=== PATIENT | female | born 1940 | race Caucasian/White ===

== ENCOUNTER 2018-01-27 20:31 | Inpatient (IN) ==
[2018-01-27] MEDS ORDERED: fentaNYL Citrate Inj 100 MCG/2 ML Ampul IV.PUSH ONE (21:27)
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
[2018-01-27 22:36] LABS: Baso % (Auto) 0.2 % (0.0-2.0); Eos # (Auto) 0.1 th/mm3 (0.0-0.4); Eos % (Auto) 1.9 % (0.0-4.0); Hematocrit 36.2 % (35.0-46.0); Lymph # (Auto) 0.9 th/mm3 (1.0-4.8); Lymph % (Auto) 13.7 % (9.0-44.0); Mean Corpuscular HGB Conc 33.1 % (32.0-36.0); Mean Corpuscular Volume 90.5 fL (80.0-100.0); Mean Platelet Volume 8.8 fL (7.0-11.0); Mono # (Auto) 0.6 th/mm3 (0.0-0.9); Mono % (Auto) 8.8 % (0.0-8.0); Neut # (Auto) 5.2 th/mm3 (1.8-7.7); Neut % (Auto) 75.4 % (16.0-70.0); Platelet Count 160 th/mm3 (150-450); Red Cell Distribution Width 13.8 % (11.6-17.2); White Blood Count 6.9 th/mm3 (4.0-11.0)
[2018-01-27 22:53] LABS: Activated Partial Thrombo Time 21.4 sec (23.4-31.7); Prothrombin Time 10.5 sec (9.8-11.6)
[2018-01-27 22:58] LABS: Calcium 8.5 mg/dL (8.5-10.1); Carbon Dioxide 28.8 meq/L (21.0-32.0); Potassium 4.1 meq/L (3.5-5.1)
[2018-01-27] MEDS ORDERED: Sod Chloride 0.9% Inj 1,000 ML IV.CONT SCH (23:00)
[2018-01-27] MEDS ORDERED: Pantoprazole Inj 40 MG Vial IV.PUSH SCH (23:00)
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
[2018-01-28] MEDS: Morphine Sulfate Inj 2 MG/ML Vial IV.PUSH PRN ×2 (01:43→17:29)
[2018-01-28] MEDS ORDERED: Sodium Chlor 0.9% Inj 500 ML IV.CONT ONE (04:00)
[2018-01-28] MEDS ORDERED: Chlorhexidine Gluconate 2% 1 Pack (2 Cloths) TOPICAL ONE (04:00)
[2018-01-28 06:15] LABS: Baso % (Auto) 0.2 % (0.0-2.0); Eos # (Auto) 0.4 th/mm3 (0.0-0.4); Eos % (Auto) 6.2 % (0.0-4.0); Hematocrit 34.5 % (35.0-46.0); Hemoglobin 11.9 gm/dL (11.6-15.3); Lymph # (Auto) 1.2 th/mm3 (1.0-4.8); Lymph % (Auto) 17.9 % (9.0-44.0); Mean Corpuscular HGB Conc 34.4 % (32.0-36.0); Mean Corpuscular Hemoglobin 30.9 pg (27.0-34.0); Mean Corpuscular Volume 89.8 fL (80.0-100.0); Mean Platelet Volume 9.6 fL (7.0-11.0); Mono # (Auto) 0.6 th/mm3 (0.0-0.9); Mono % (Auto) 9.4 % (0.0-8.0); Neut # (Auto) 4.3 th/mm3 (1.8-7.7); Neut % (Auto) 66.3 % (16.0-70.0); Platelet Count 158 th/mm3 (150-450); Red Blood Count 3.84 mil/mm3 (4.00-5.30); Red Cell Distribution Width 13.8 % (11.6-17.2); White Blood Count 6.5 th/mm3 (4.0-11.0)
[2018-01-28 06:45] LABS: Albumin 3.2 g/dL (3.4-5.0); Anion Gap 9 meq/L (5-15); Aspartate Aminotransferase 44 U/L (15-37); Blood Urea Nitrogen 19 mg/dL (7-18); Calcium 8.3 mg/dL (8.5-10.1); Chloride 107 meq/L (98-107); Glomerular Filtration Rate 70 mL/min (>89); Glucose,Random 102 mg/dL (74-106); Potassium 3.9 meq/L (3.5-5.1); Sodium 141 meq/L (136-145)
[2018-01-28 06:47] LABS: Alanine Aminotransferase 35 U/L (10-53)
[2018-01-28 06:49] LABS: Alkaline Phosphatase 67 U/L (45-117); Total Protein 6.2 g/dL (6.4-8.2)
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
--- NOTE | 2018-01-28 08:11 | P.PNOP ---
Subjective Interval history: s/p right ankle fx and right wrist fx Physical Exam Vital signs: Vital Signs 01/27/18 20:58 01/28/18 00:06 01/28/18 00:44 Temperature Pulse Rate 73 70 Respiratory Rate 16 14 14 Blood Pressure 117/57 L Pulse Oximetry 94 L 96 01/28/18 00:48 01/28/18 01:24 01/28/18 03:59 Temperature 98.7 F Pulse Rate 75 Respiratory Rate 14 18 Blood Pressure 111/57 L 124/58 L Pulse Oximetry 98 95 Intake & Output 01/27/18 01/28/18 01/28/18 18:59 06:59 18:59 Intake Total 480 / 480 Output Total 400 / 400 Balance 80 / 80 Weight 88.6 kg Intake: Oral 480 / 480 Output: Urine 400 / 400 Other: # Voids 2 Date of Last Bowel Movement 01/27/18 # Bowel Movements 0 Weight On Admission 154.94 kg Narrative: RLE: +splint RUE: +splint Results - Labs CBC & Chem 7: 01/28/18 05:52 01/28/18 05:52 Laboratory Results - last 24 hr 01/27/18 01/27/18 01/27/18 22:15 22:15 22:15 WBC 6.9 RBC 4.00 Hgb 12.0 Hct 36.2 MCV 90.5 MCH 30.0 MCHC 33.1 RDW 13.8 Plt Count 160 MPV 8.8 Neut % (Auto) 75.4 H Lymph % (Auto) 13.7 [place] % (Auto) 8.8 H Eos % (Auto) 1.9 Baso % (Auto) 0.2 Neut # (Auto) 5.2 Lymph # (Auto) 0.9 L [place] # (Auto) 0.6 Eos # (Auto) 0.1 Baso # (Auto) 0.0 WBC Differential . Differential Comment Auto diff final PT 10.5 INR 1.0 APTT 21.4 L Sodium 140 Potassium 4.1 Chloride 105 Carbon Dioxide 28.8 Anion Gap 6 BUN 20 H Creatinine 0.81 Estimated GFR 69 L Random Glucose 116 H Calcium 8.5 Total Bilirubin AST ALT Alkaline Phosphatase Total Protein Albumin Blood Type Blood Type Recheck Antibody Screen 01/27/18 01/28/18 01/28/18 22:15 05:52 05:52 WBC 6.5 RBC 3.84 L Hgb 11.9 Hct 34.5 L MCV 89.8 MCH 30.9 MCHC 34.4 RDW 13.8 Plt Count 158 MPV 9.6 Neut % (Auto) 66.3 Lymph % (Auto) 17.9 [place] % (Auto) 9.4 H Eos % (Auto) 6.2 H Baso % (Auto) 0.2 Neut # (Auto) 4.3 Lymph # (Auto) 1.2 [place] # (Auto) 0.6 Eos # (Auto) 0.4 Baso # (Auto) 0.0 WBC Differential . Differential Comment Auto diff final PT INR APTT Sodium 141 Potassium 3.9 Chloride 107 Carbon Dioxide 25.0 Anion Gap 9 BUN 19 H Creatinine 0.80 Estimated GFR 70 L Random Glucose 102 Calcium 8.3 L Total Bilirubin 0.7 AST 44 H ALT 35 Alkaline Phosphatase 67 Total Protein 6.2 L Albumin 3.2 L Blood Type O Positive Blood Type Recheck Required Antibody Screen Negative - Imaging Impressions Ankle X-Ray 01/27/18 00:00 CONCLUSION: Horizontal medial malleolar fracture without displacement or angulation in splint. Chest X-Ray 01/27/18 00:00 CONCLUSION: Streaky opacity in both lung bases right greater than left. Differential diagnosis includes scarring and atelectasis. Pneumonia or lung contusion is less likely. Wrist X-Ray 01/27/18 00:00 CONCLUSION: Nonangulated distal radial fractures. Ankle X-Ray 01/28/18 00:00 CONCLUSION: 1. Transverse fracture through the medial malleolus which is nondisplaced. There is apparent mild widening of the medial ankle mortise. 2. The distal fibula appears intact. The fine bony detail is obscured by overlying artifact. Assessment and Plan - Assessment and Plan 1) Right Distal Radius Fracture 2) Right Medial Malleolus Fracture -repeat xrays completed. right ankle would benefit from surgical fixation. will plan on OR today with [facility]. patient agrees with plan. spoke with daughter who also agrees. -sign consents -OR today
--- NOTE | 2018-01-28 08:32 | ECG ---
Date Performed: 01/28/2018 Time Performed: 04:44:56 PTAGE: 77 years EKG: Sinus rhythm with bigeminal PACs. Abnormal ECG PREVIOUS TRACING : 01/27/2018 23.18 DOCTOR: Randy Santiago Interpretating Date/Time 01/28/2018 08:31:33
--- NOTE | 2018-01-28 08:36 | ECG ---
Date Performed: 01/27/2018 Time Performed: 23:18:44 PTAGE: 77 years EKG: Sinus rhythm WITH SINUS ARRHYTHMIA NORMAL ECG NO PREVIOUS TRACING DOCTOR: Randy Santiago Interpretating Date/Time 01/28/2018 08:35:24
[2018-01-28] MEDS ORDERED: ceFAZolin 1 GM Premix Inj 1 GM/50 ML FROZ.PIGGY IV.SIG ONE (08:50)
[2018-01-28] MEDS ORDERED: IPRATROPIUM BROMIDE NASAL SCH (09:00)
[2018-01-28] MEDS ORDERED: Furosemide 20 MG Tablet PO SCH (09:00)
[2018-01-28] MEDS ORDERED: Sugammadex Inj 200 MG/2 ML Vial IV.PUSH ONE (09:25)
[2018-01-28] MEDS ORDERED: Lidocaine PF 1% Inj 5 ML Syringe OTHER ONE (09:41)
--- NOTE | 2018-01-28 10:50 | P.OP ---
- Preoperative Diagnosis (1) Ankle fracture, right Date of procedure: 01/28/18 Procedure: Open reduction internal fixation ankle bimalleolar fracture, stress exam of syndesmosis Anesthesia: GETA Surgeon: Noel Fisher MD Cooling Machine Operator: INES Dickson PA-C The surgical procedure was assisted by my physician assistant sales manager. My P.A. presence was necessary throughout this case for the manipulation and positioning of the surgical extremity. My P.A. was assisting me throughout the duration of this procedure. The skill set of a physician assistant sales manager was medically necessary to complete this procedure. During the surgical case the biomedical engineering technologist was working at the back table and the physician assistant sales manager was directly assisting me. Operation and Findings: Implants used : ITS Plan of activity: Nonweightbearing right wrist and right leg Details of procedure: Patient was seen and evaluated preoperatively and found to have a displaced ankle fracture. Informed consent was obtained after a detailed discussion of risk and benefits of surgery. The operative site was marked. Patient was brought to the OR, placed on the OR table, and given IV sedation and general endotracheal anesthesia. IV antibiotics were given preoperatively. A timeout procedure was performed. The operative leg was prepped with alcohol followed by Hibiclens and draped in the usual sterile fashion. Attention was turned towards the distal fibula. A four-inch incision was made over the distal fibula. The subcutaneous tissue was dissected with Bovie. The fracture site was visualized. The fracture site was cleaned with curets. The fracture was now reduced. The fracture keyed into anatomic alignment. K-wires were used to h old provisional fixation. A plate was selected and contoured to fit the distal fibula. The plate was provisionally held to bone with K- wires. 2.7 cortical screws were used to compress the plate to bone. Multiple screws were placed above and below the fracture. Next attention was turned towards the medial malleolus. The fracture was mainly reduced. Fracture keyed and excellent alignment. K wires were used to hold provisional fixation. 2 guidepins for the 4.0 cannulated screws were placed in a retrograde fashion across the fracture. Fluoroscopy was used to confirm guidepin placement. Cannulated drill was placed over the guidepin. 2 appropriate length screws were now placed. Good compression was applied. Fluoroscopy confirmed well aligned fracture with well-placed hardware. Next, attention was turned to the syndesmosis. The syndesmosis was stressed. There was no widening of the syndesmosis with external rotation of the ankle. Incisions were thoroughly irrigated. The subcutaneous tissue was closed with 3- 0 Vicryl and the skin was closed with 3-0 nylon. Sterile dressings were applied. A well molded well-padded splint was applied. The patient was transferred to Recovery in stable condition. Needle and sponge counts were correct.
--- NOTE | 2018-01-28 10:56 | XR ---
EXAM DATE: 01/28/2018 10:52 AM EST AGE/SEX: 77 years / Female INDICATIONS: Post-op ORIF right ankle. CLINICAL DATA: This is the patient's subsequent encounter. Patient reports that signs and symptoms h ave been present for 2 days and indicates a pain score of Nonresponsive. MEDICAL/SURGICAL HISTORY: Non-responsive. Non-responsive. COMPARISON: [facility] – [place], ANKLE LIMITED RIGHT 2V, 01/27/2018. . FINDINGS: 2 views of the ankle in fiberglass reveal anatomic alignment across the tibiotalar joint. Bones are osteoporotic. Fracture of the medial malleolus again noted. CONCLUSION: Anatomic alignment in fiberglass. Electronically signed by: Jeff Khan MD 01/28/2018 10:54 AM EST
[2018-01-28] MEDS ORDERED: ceFAZolin 2 GM Premix Inj 2 GM/50 ML PIGGYBACK IV.SIG ONE (11:00)
[2018-01-28] MEDS ORDERED: fentaNYL Citrate Inj 100 MCG/2 ML Ampul ONE (11:07)
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
[2018-01-28] MEDS: Folic Acid 1 MG Tablet PO SCH (18:49)
[2018-01-28] MEDS: Montelukast 10 MG Tablet PO SCH (18:49)
[2018-01-28] MEDS: Tiotropium Bromide 18 MCG/ACT Inhaler INH SCH (18:49)
[2018-01-28] MEDS: Senna/Docusate Sodium 8.6/50 MG Tablet PO SCH ×2 (18:49→21:49)
[2018-01-28] MEDS: Budesonide-Formoterol 160/4.5 MCG 6 GM Inhaler INH SCH ×2 (18:49→21:48)
[2018-01-28] MEDS ORDERED: Mirtazapine 15 MG Tablet PO SCH (21:00)
[2018-01-29 04:12] LABS: Baso % (Auto) 0.4 % (0.0-2.0); Eos # (Auto) 0.6 th/mm3 (0.0-0.4); Eos % (Auto) 8.2 % (0.0-4.0); Hematocrit 33.4 % (35.0-46.0); Lymph # (Auto) 1.6 th/mm3 (1.0-4.8); Lymph % (Auto) 21.5 % (9.0-44.0); Mean Corpuscular HGB Conc 32.9 % (32.0-36.0); Mean Corpuscular Hemoglobin 30.3 pg (27.0-34.0); Mean Corpuscular Volume 91.9 fL (80.0-100.0); Mean Platelet Volume 9.5 fL (7.0-11.0); Mono # (Auto) 0.6 th/mm3 (0.0-0.9); Mono % (Auto) 7.5 % (0.0-8.0); Neut # (Auto) 4.6 th/mm3 (1.8-7.7); Neut % (Auto) 62.4 % (16.0-70.0); Platelet Count 142 th/mm3 (150-450); Red Blood Count 3.63 mil/mm3 (4.00-5.30); Red Cell Distribution Width 13.8 % (11.6-17.2); White Blood Count 7.4 th/mm3 (4.0-11.0)
[2018-01-29 04:38] LABS: Calcium 8.3 mg/dL (8.5-10.1); Carbon Dioxide 28.8 meq/L (21.0-32.0); Potassium 4.1 meq/L (3.5-5.1)
--- NOTE | 2018-01-29 06:50 | P.PNOP ---
Subjective Interval history: s/p right distal radius fx POD 1 s/p ORIF right ankle doing well. reports minimal pain in ankle but slight pain in wrist. used walker yesterday Physical Exam Vital signs: Vital Signs 01/28/18 08:00 01/28/18 11:00 01/28/18 11:15 Temperature 97.8 F 97.8 F Pulse Rate 76 72 72 Respiratory Rate 19 18 19 Blood Pressure 143/69 H 125/61 131/59 L Pulse Oximetry 92 L 95 01/28/18 11:30 01/28/18 11:45 01/28/18 12:00 Temperature 98.8 F Pulse Rate 73 73 72 Respiratory Rate 19 19 19 Blood Pressure 132/62 132/61 123/60 Pulse Oximetry 95 95 95 01/28/18 12:15 01/28/18 16:00 01/28/18 20:24 Temperature 97.8 F 98 F 99.3 F Pulse Rate 76 84 75 Respiratory Rate 19 19 18 Blood Pressure 131/59 L 119/58 L 129/60 Pulse Oximetry 95 93 L 97 01/28/18 23:50 01/29/18 04:55 Temperature 99.1 F 98.7 F Pulse Rate 78 73 Respiratory Rate 18 18 Blood Pressure 110/57 L 129/60 Pulse Oximetry 96 97 Intake & Output 01/28/18 01/28/18 01/29/18 06:59 18:59 06:59 Intake Total 480 / 480 550 / 550 360 / 360 Output Total 400 / 400 30 / 30 Balance 80 / 80 520 / 520 360 / 360 Weight 88.6 kg 88.6 kg Intake: IV 550 / 550 LR 1000 mL Inj 1,000 ML @ 30 500 / 500 mls/hr IV.CONT .Q24H ONE Rx#: [id number] Ancef 1 GM Premix Inj 1 gm In 50 / 50 50 ml @ 0 mls/hr IV.SIG .STK- MED ONE Rx#:[id number] Oral 480 / 480 360 / 360 Output: Urine 400 / 400 Estimated Blood Loss 30 / 30 Other: # Voids 2 1 # Incontinent Voids 3 Date of Last Bowel Movement 01/27/18 01/27/18 01/27/18 # Bowel Movements 0 0 Weight On Admission 154.94 kg Narrative: RUE: +short arm splint. intact. full sensation to median/ulnar nerve RLE: +short leg splint. intact. NVI Results - Labs CBC & Chem 7: 01/29/18 03:51 01/29/18 03:51 Laboratory Results - last 24 hr 01/28/18 01/29/18 01/29/18 05:52 03:51 03:51 WBC 7.4 RBC 3.63 L Hgb 11.0 L Hct 33.4 L MCV 91.9 MCH 30.3 MCHC 32.9 RDW 13.8 Plt Count 142 L MPV 9.5 Neut % (Auto) 62.4 Lymph % (Auto) 21.5 [place] % (Auto) 7.5 Eos % (Auto) 8.2 H Baso % (Auto) 0.4 Neut # (Auto) 4.6 Lymph # (Auto) 1.6 [place] # (Auto) 0.6 Eos # (Auto) 0.6 H Baso # (Auto) 0.0 WBC Differential . Differential Comment Auto diff final Sodium 141 Potassium 4.1 Chloride 107 Carbon Dioxide 28.8 Anion Gap 5 BUN 21 H Creatinine 0.86 Estimated GFR 64 L Random Glucose 105 Calcium 8.3 L Total Bilirubin 0.7 ALT 35 Alkaline Phosphatase 67 Total Protein 6.2 L - Imaging Impressions Ankle X-Ray 01/28/18 00:00 CONCLUSION: 1. Transverse fracture through the medial malleolus which is nondisplaced. There is apparent mild widening of the medial ankle mortise. 2. The distal fibula appears intact. The fine bony detail is obscured by overlying artifact. Ankle X-Ray 01/28/18 00:00 CONCLUSION: Anatomic alignment in fiberglass. Assessment and Plan - Assessment and Plan 1) Right Distal Radius Fracture - nonop 2) Right Bimalleolar Ankle Fx s/p ORIF - POd 1 -NWB to RLE and Right wrist -ok for platform walker -maintain splints on right wrist and ankle at all times -elevate ankle -CM for DC planning --> will likely require SNF -ortho clear for DC to SNF when arrangements made -DVT prophylaxis with aspirin 81mg po BID for 4 weeks -f/u with [facility] or [facility] in 2 weeks [facility] Prescription Drug Monitoring Database has been queried and verified prior to prescribing the controlled substance. Acute pain exception. This patient has normal, predicted, physiological, and time limited response to an adverse mechanical stimulus associated with surgery, trauma, or acute illness as described in my notes. There is a lack of alternative treatment options other than to include the prescribed narcotic treatment for this condition.
[2018-01-29] MEDS: Senna/Docusate Sodium 8.6/50 MG Tablet PO SCH ×2 (09:53→20:32)
[2018-01-29] MEDS: Montelukast 10 MG Tablet PO SCH (10:00)
[2018-01-29] MEDS: Tiotropium Bromide 18 MCG/ACT Inhaler INH SCH (10:00)
[2018-01-29] MEDS: Budesonide-Formoterol 160/4.5 MCG 6 GM Inhaler INH SCH ×2 (10:00→20:34)
[2018-01-29] MEDS: Folic Acid 1 MG Tablet PO SCH (10:00)
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
--- NOTE | 2018-01-30 06:51 | P.PNOP ---
Subjective Interval history: Pain is controlled with no new complaints Physical Exam Vital signs: Vital Signs 01/29/18 08:00 01/29/18 10:27 01/29/18 12:00 Temperature 98.8 F 99.1 F Pulse Rate 76 73 Respiratory Rate 18 18 18 Blood Pressure 147/81 H 125/59 L Pulse Oximetry 98 92 L 01/29/18 14:21 01/29/18 16:00 01/29/18 18:26 Temperature 97.5 F L Pulse Rate 72 Respiratory Rate 18 18 18 Blood Pressure 123/72 Pulse Oximetry 91 L 01/29/18 19:35 01/29/18 20:00 01/29/18 23:36 Temperature 98.1 F Pulse Rate 71 68 Respiratory Rate 19 18 Blood Pressure 137/64 Pulse Oximetry 94 L 01/30/18 00:45 01/30/18 04:55 Temperature 97.5 F L 97.5 F L Pulse Rate 62 60 Respiratory Rate 18 18 Blood Pressure 152/65 H 135/63 Pulse Oximetry 94 L 94 L Intake & Output 01/29/18 01/29/18 01/30/18 06:59 18:59 06:59 Intake Total 360 / 360 1000 / 1000 1570 / 1570 Balance 360 / 360 1000 / 1000 1570 / 1570 Weight 88.6 kg 88.6 kg Intake: IV 1000 / 1000 LR 1000 mL Inj 1,000 ML @ 50 1000 / 1000 mls/hr IV.CONT .Q20H WENDY Rx#: [id number] Oral 360 / 360 1570 / 1570 Other: # Voids 2 # Incontinent Voids 3 1 Date of Last Bowel Movement 01/27/18 01/27/18 01/27/18 # Bowel Movements 0 Narrative: Right upper extremity: Splint intact. Intact sensation all fingers. Full extension flexion of all fingers. Good capillary refills and distal pulses Right lower extremity: No pain with hip or knee range of motion. Splint intact. Intact sensation distally. Good capillary refills. Is able to move all toes appropriately Results - Labs CBC & Chem 7: 01/29/18 03:51 01/29/18 03:51 Assessment and Plan - Assessment and Plan 1) Right Distal Radius Fracture - nonop 2) Right Bimalleolar Ankle Fx s/p ORIF - POD 2 -NWB to RLE and Right wrist -ok for platform walker -maintain splints on right wrist and ankle at all times -elevate ankle -CM for DC planning --> will likely require SNF -ortho clear for DC to SNF when arrangements made -DVT prophylaxis with aspirin 81mg po BID for 4 weeks -f/u with [facility] or [place] in 2 weeks [facility] Prescription Drug Monitoring Database has been queried and verified prior to prescribing the controlled substance. Acute pain exception. This patient has normal, predicted, physiological, and time limited response to an adverse mechanical stimulus associated with surgery, trauma, or acute illness as described in my notes. There is a lack of alternative treatment options other than to include the prescribed narcotic treatment for this condition.
[2018-01-30] MEDS: Montelukast 10 MG Tablet PO SCH (09:49)
[2018-01-30] MEDS: Senna/Docusate Sodium 8.6/50 MG Tablet PO SCH ×2 (09:49→20:49)
[2018-01-30] MEDS: Folic Acid 1 MG Tablet PO SCH (09:49)
[2018-01-30] MEDS: Budesonide-Formoterol 160/4.5 MCG 6 GM Inhaler INH SCH (09:51)
[2018-01-30] MEDS: Tiotropium Bromide 18 MCG/ACT Inhaler INH SCH (09:52)
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
[2018-01-31] MEDS: Budesonide-Formoterol 160/4.5 MCG 6 GM Inhaler INH SCH ×3 (06:05→21:32)
[2018-01-31] MEDS: Folic Acid 1 MG Tablet PO SCH (08:34)
[2018-01-31] MEDS: Montelukast 10 MG Tablet PO SCH (08:34)
[2018-01-31] MEDS: Senna/Docusate Sodium 8.6/50 MG Tablet PO SCH ×2 (08:34→21:32)
[2018-01-31] MEDS: Tiotropium Bromide 18 MCG/ACT Inhaler INH SCH (08:35)
--- NOTE | 2018-01-31 12:47 | P.DCO ---
- Physical Therapy Order: Evaluate and treat, Improve ambulation, Strength and gait training - Occupational Therapy Order: Evaluate and treat, Improve ADL, Gross motor coordination - Home Health Nursing Order: Medical education, Signs/symptoms of disease process, Medication education-adverse effect, Nursing assessment with vital signs - Case Management Consult Case Management Consult-Home Health: Yes - Certification I have seen patient Svetlana Mason on 01/31/18. My clinical findings support the need for the requested home health care services because: Limited mobility due to disease progression, Patient has SOB, Deconditioned with increased weakness, Limited ability to care for self, High risk of falls I certify that my clinical findings support that this patient is homebound because: Post-op weakness, Unsteady gait/balance, Unsafe to leave home unassisted, Unable to use public transportation
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
[2018-02-01] MEDS: Montelukast 10 MG Tablet PO SCH (08:29)
[2018-02-01] MEDS: Senna/Docusate Sodium 8.6/50 MG Tablet PO SCH ×2 (08:29→21:46)
[2018-02-01] MEDS: Folic Acid 1 MG Tablet PO SCH (08:29)
[2018-02-01] MEDS: Budesonide-Formoterol 160/4.5 MCG 6 GM Inhaler INH SCH ×2 (08:35→21:47)
[2018-02-01] MEDS: Tiotropium Bromide 18 MCG/ACT Inhaler INH SCH (08:38)
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
--- NOTE | 2018-02-02 06:23 | P.PNOP ---
Subjective Interval history: Resting comfortably with no new complaints. Patient is having difficulty with approval for rehab Physical Exam Vital signs: Vital Signs 02/01/18 06:26 02/01/18 08:00 02/01/18 09:00 Temperature 97.8 F Pulse Rate 65 65 Respiratory Rate 18 14 Blood Pressure 147/80 H Pulse Oximetry 95 02/01/18 12:00 02/01/18 16:00 02/01/18 19:00 Temperature 97.4 F L 97.9 F 97.8 F Pulse Rate 65 73 71 Respiratory Rate 16 16 17 Blood Pressure 145/63 H 161/76 H 129/59 L Pulse Oximetry 95 95 96 02/01/18 20:09 02/01/18 22:15 02/01/18 23:21 Temperature 98.0 F Pulse Rate 69 66 Respiratory Rate 17 18 Blood Pressure 136/70 Pulse Oximetry 93 L 02/02/18 00:04 02/02/18 03:37 02/02/18 03:52 Temperature 97.9 F Pulse Rate 66 63 69 Respiratory Rate 18 Blood Pressure 145/65 H Pulse Oximetry 95 Intake & Output 02/01/18 02/01/18 02/02/18 06:59 18:59 06:59 Intake Total 480 / 480 480 / 480 480 / 480 Balance 480 / 480 480 / 480 480 / 480 Weight 91 kg Intake: Oral 480 / 480 480 / 480 480 / 480 Other: # Voids 3 3 3 Date of Last Bowel Movement 01/30/18 01/27/18 02/01/18 # Bowel Movements 0 1 0 Narrative: Right upper extremity: Clean dry splint intact. Intact sensation in all fingers. Full extension flexion of fingers. Good capillary refills and distal pulses. Right lower extremity: Splint intact. Good capillary refills and movement of toes. Results - Labs CBC & Chem 7: 01/29/18 03:51 01/29/18 03:51 - Procedures 01/28: ORIF ankle bimalleolar fracture, stress exam of syndesmosis Assessment and Plan - Assessment and Plan 1) Right Distal Radius Fracture - nonop 2) Right Bimalleolar Ankle Fx s/p ORIF - POD 5 -NWB to RLE and Right wrist -ok for platform walker -maintain splints on right wrist and ankle at all times -elevate ankle -CM for DC planning --> will likely require SNF -ortho clear for DC to SNF when arrangements made -DVT prophylaxis with aspirin 81mg po BID for 4 weeks -f/u with [facility] or [facility] in 2 weeks [employer] Prescription Drug Monitoring Database has been queried and verified prior to prescribing the controlled substance. Acute pain exception. This patient has normal, predicted, physiological, and time limited response to an adverse mechanical stimulus associated with surgery, trauma, or acute illness as described in my notes. There is a lack of alternative treatment options other than to include the prescribed narcotic treatment for this condition.
[2018-02-02] MEDS ORDERED: Ibuprofen 600 MG Tablet PO PRN (08:42)
[2018-02-02] MEDS: Ibuprofen 600 MG Tablet PO SCH ×2 (09:38→16:57)
[2018-02-02] MEDS: Folic Acid 1 MG Tablet PO SCH (09:38)
[2018-02-02] MEDS: Senna/Docusate Sodium 8.6/50 MG Tablet PO SCH ×2 (09:38→22:10)
[2018-02-02] MEDS: Montelukast 10 MG Tablet PO SCH (09:38)
[2018-02-02] MEDS: Budesonide-Formoterol 160/4.5 MCG 6 GM Inhaler INH SCH ×2 (09:39→22:09)
[2018-02-02] MEDS: Tiotropium Bromide 18 MCG/ACT Inhaler INH SCH (09:40)
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
[2018-02-03] MEDS: Ibuprofen 600 MG Tablet PO SCH ×3 (01:00→16:48)
[2018-02-03] MEDS: oxyCODONE/Acetaminophen 10/325 Tablet PO PRN ×2 (06:42→10:52)
[2018-02-03] MEDS: Folic Acid 1 MG Tablet PO SCH (10:47)
[2018-02-03] MEDS: Montelukast 10 MG Tablet PO SCH (10:48)
[2018-02-03] MEDS: Senna/Docusate Sodium 8.6/50 MG Tablet PO SCH (10:49)
[2018-02-03] MEDS: Tiotropium Bromide 18 MCG/ACT Inhaler INH SCH (10:50)
[2018-02-03] MEDS: Budesonide-Formoterol 160/4.5 MCG 6 GM Inhaler INH SCH (10:50)
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
== END 2018-02-03 16:36 | disposition home health service (06) ==
LOC: NEPE 20:31 → NEDA 21:27 → N06 01-28 01:26
PROVIDERS: ADMIT Surgery; ATTEND Surgery
PROC: ORIFANK (2018-01-28 09:41)